=== PATIENT | male | born 1995 | race Caucasian/White ===

== ENCOUNTER 2016-08-11 20:51 | Emergency (ER) | payer BC ==
[2016-08-11] MEDS ORDERED: guaiFENesin/CODIEN 100MG-10MG* 5 ML UDC PO ONE (21:35)
--- NOTE | 2016-08-11 21:41 | UC ---
UC General HPI - HPI Summary HPI Summary: fever cough ricci tested positive for flu today - History of Current Complaint Chief Complaint: UCGeneralIllness Stated Complaint: FLU SYMPTOMS Time Seen by Provider: 08/11/16 21:30 Hx Obtained From: Patient Onset/Duration: Sudden Onset, Lasting Days Timing: Constant Onset Severity: Moderate Current Severity: Moderate Associated Signs & Symptoms: Positive: Cough, Fever, Headache - Allergy/Home Medications Allergies/Adverse Reactions: Allergies Allergy/AdvReac Type Severity Reaction Status Date / Time No Known Allergies Allergy Verified 08/11/16 21:05 Home Medications: Home Medications Ibuprofen TAB* [Advil TAB*] 600 mg PO Q6H PRN 08/11/16 [History Confirmed ] Minocycline HCl [Minocin] 100 mg PO DAILY 08/11/16 [History Confirmed 08/11/16] PMH/Surg Hx/FS Hx/Imm Hx Previously Healthy: Yes - Surgical History Surgical History: Yes Surgery Procedure, Year, and Place: hand surgery - Family History Known Family History: Positive: Hypertension - Social History Alcohol Use: None Substance Use Type: None Smoking Status (MU): Never Smoked Tobacco Review of Systems Constitutional: Fever, Chills, Fatigue Skin: Negative Eyes: Negative ENT: Sore Throat Respiratory: Shortness Of Breath, Cough Cardiovascular: Negative Gastrointestinal: Negative Genitourinary: Negative Motor: Negative Neurovascular: Negative Musculoskeletal: Myalgia Neurological: Headache Psychological: Negative All Other Systems Reviewed And Are Negative: Yes Physical Exam Triage Information Reviewed: Yes Appearance: Well-Nourished, Ill-Appearing, Pain Distress Vital Signs: Initial Vital Signs Temp 100.4 F 08/11/16 20:59 Pulse 86 08/11/16 20:59 Resp 24 08/11/16 20:59 BP 115/68 08/11/16 20:59 Pulse Ox 100 08/11/16 20:59 Vital Signs Reviewed: Yes Eye Exam: Normal Eyes: Positive: Conjunctiva Clear ENT: Positive: Pharyngeal erythema, Nasal congestion, TM red Dental Exam: Normal Neck exam: Normal Neck: Positive: Supple, Nontender, No Lymphadenopathy Respiratory Exam: Normal Respiratory: Positive: Chest non-tender, Lungs clear, Normal breath sounds, Other: - coughing Cardiovascular Exam: Normal Cardiovascular: Positive: RRR, No Murmur, Pulses Normal Abdominal Exam: Normal Abdomen Description: Positive: Nontender, No Organomegaly, Soft Bowel Sounds: Positive: Present Musculoskeletal Exam: Normal Musculoskeletal: Positive: Strength Intact, ROM Intact, No Edema Neurological Exam: Normal Neurological: Positive: Alert, Muscle Tone Normal Psychological Exam: Normal Skin Exam: Normal Course/Dx - Course Course Of Treatment: history obtained, exam performed flu swab positive for flu A. meds dispensed and prescribed. - Differential Dx - Multi-Symptom Provider Diagnoses: influenza A. cough Discharge - Discharge Plan Condition: Stable Disposition: HOME Prescriptions: guaiFENesin/CODIEN 100MG-10MG* [Robitussin AC 100Mg-10Mg*] 5 ml PO BEDTIME PRN # 100 ml MDD 5 ml PRN Reason: Cough Patient Education Materials: Influenza (ED) Additional Instructions: Take the medication as prescribed. Increase your fluid intake and get plenty of rest.
[2016-08-11 21:56] VITALS: BP 112/66
== END 2016-08-11 21:56 | disposition home or self-care (01) ==
LOC: UCCORT 20:51
DX: J10.1 Influenza due to other identified influenza virus with other respiratory manifestations (principal); R05 Cough
CPT/HCPCS: 87502; 99212; A9270-GY; G0463

== ENCOUNTER 2018-12-18 15:00 | Emergency (ER) | payer BC ==
[2018-12-18 15:26] VITALS: BP 123/50
--- NOTE | 2018-12-18 15:53 | UC ---
Ear Complaint HPI - HPI Summary HPI Summary: 4 day history of congestion and fever, with increasing ear pain, decreased hearing. Several days ago had an exposure to a smoky environment which triggered symptoms. Has been using zyrtec an otc meds without relief. Mild cough , no shortness of breath. - History of Current Complaint Chief Complaint: UCGeneralIllness Stated Complaint: BILATERAL EARS,SORE THROAT,SINUSES Time Seen by Provider: 12/18/18 15:44 Hx Obtained From: Patient Onset/Duration: Gradual Onset, Lasting Days - 4 Severity Initially: Moderate Severity Currently: Moderate Pain Intensity: 6 Aggravating Factors: Nothing Alleviating Factors: OTC Meds Associated Signs/Symptoms: Positive: URI Symptoms. Negative: Trauma to Ear Related History: Seasonal Allergies - Allergies/Home Medications Allergies/Adverse Reactions: Allergies Allergy/AdvReac Type Severity Reaction Status Date / Time No Known Allergies Allergy Verified 12/18/18 15:20 PMH/Surg Hx/FS Hx/Imm Hx Previously Healthy: Yes - Surgical History Surgical History: Yes Surgery Procedure, Year, and Place: R hand surgery - Family History Known Family History: Positive: Hypertension, Other - GM of CA colon - Social History Occupation: Employed Full-time - beginning work at [employer] Lives: With Family Alcohol Use: Occasionally Substance Use Type: None Smoking Status (MU): Never Smoked Tobacco Review of Systems All Other Systems Reviewed And Are Negative: Yes Constitutional: Positive: Fever, Fatigue Skin: Positive: Other - has a nodular area in the left upper medial thigh. Has seen derm in the past due to multiple nevi, no hx of melanoma ENT: Positive: Sore Throat, Ear Ache, Nasal Discharge, Sinus Congestion Respiratory: Positive: Negative Cardiovascular: Positive: Negative Gastrointestinal: Positive: Negative Genitourinary: Positive: Negative Musculoskeletal: Positive: Negative Physical Exam Triage Information Reviewed: Yes Appearance: Well-Appearing, Pain Distress - mild Vital Signs: Initial Vital Signs Temp 99.2 F 12/18/18 15:21 Pulse 82 12/18/18 15:21 Resp 14 12/18/18 15:21 BP 123/50 12/18/18 15:21 Pulse Ox 99 12/18/18 15:21 Eyes: Positive: Conjunctiva Clear ENT: Positive: Pharyngeal erythema, Nasal congestion, TM bulging, TM dull - right, TM red - right Dental Exam: Normal Neck: Positive: Supple, Nontender, No Lymphadenopathy Respiratory: Positive: Chest non-tender, Lungs clear Cardiovascular: Positive: RRR Musculoskeletal Exam: Normal Neurological Exam: Normal Neurological: Positive: Alert Skin Exam: Other - left inner medial thigh with 1 cm x 6 mm nodule with light brown color. No inguinal adenopathy. Numerous nevi trunk and face. Ear Complaint Course/Dx - Course Course Of Treatment: amoxicillin for otitis media. Continue zyrtec and add flonase. He declined a derm referral at this time (has had check within the year, not certain if groin nodule was assessed. - Differential Dx/Diagnosis Differential Diagnosis/HQI/PQRI: Otitis Media Provider Diagnosis: Right otitis media Discharge - Sign-Out/Discharge Documenting (check all that apply): Patient Departure All imaging exams completed and their final reports reviewed: No Studies - Discharge Plan Condition: Stable Disposition: HOME Prescriptions: Amoxicillin PO (*) [Amoxicillin 875 MG (*)] 875 mg PO BID #14 tab Patient Education Materials: Ear Infection (ED) Referrals: Dixie Ham MD [Primary Care Provider] - Additional Instructions: Use amoxicillin for otitis media, and use ibuprofen as needed for pain. You might add flonase spray (over the counter) for relief of nasal congestion. Continue zyrtec for suspected allergies. 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 As discussed , you will follow up with one of the dermatologists you have seen in the past for evaluation. - Billing Disposition and Condition Condition: STABLE Disposition: Home
== END 2018-12-18 16:14 | disposition home or self-care (01) ==
LOC: UCCORT 15:00
DX: H66.91 Otitis media, unspecified, right ear (principal)
CPT/HCPCS: 99212; G0463

== ENCOUNTER 2019-03-03 08:21 | Emergency (ER) | payer BC ==
[2019-03-03 08:42] VITALS: BP 115/62
--- NOTE | 2019-03-03 09:05 | UC ---
Epistaxis Nasal HPI - HPI Summary HPI Summary: pain bilateral nostril x 1 week + fullness, crusty scab, pain is 5 out of 10 , worse with touch , better with antibiotic oint no fever, no nasal discharge, no bleeding, no cold symptoms - History of Current Complaint Chief Complaint: UCGeneralIllness Stated Complaint: SINUS CONCERN Time Seen by Provider: 03/03/19 08:55 Hx Obtained From: Patient Onset/Duration: Gradual Onset, Lasting Days - 7, Still Present Timing: Constant Severity Initially: Moderate Severity Currently: Moderate Pain Intensity: 4 Aggravating Factor(s): Other - touch Associated Signs And Symptoms: Positive: Negative - Allergies/Home Medications Allergies/Adverse Reactions: Allergies Allergy/AdvReac Type Severity Reaction Status Date / Time No Known Allergies Allergy Verified 03/03/19 08:35 PMH/Surg Hx/FS Hx/Imm Hx Previously Healthy: Yes - Surgical History Surgical History: Yes Surgery Procedure, Year, and Place: R hand surgery - Family History Known Family History: Positive: Hypertension, Other - GM of CA colon - Social History Alcohol Use: Rare Substance Use Type: None Smoking Status (MU): Never Smoked Tobacco Review of Systems All Other Systems Reviewed And Are Negative: Yes Constitutional: Positive: Negative Is Patient Immunocompromised?: No Physical Exam Triage Information Reviewed: Yes Appearance: Well-Appearing, No Pain Distress, Well-Nourished Vital Signs: Initial Vital Signs Temp 98.5 F 03/03/19 08:36 Pulse 62 03/03/19 08:36 Resp 14 03/03/19 08:36 BP 115/62 03/03/19 08:36 Pulse Ox 100 03/03/19 08:36 Vital Signs Reviewed: Yes Eye Exam: Normal Eyes: Positive: Conjunctiva Clear ENT: Positive: Normal ENT inspection, Hearing grossly normal, Pharynx normal, Nasal congestion, TMs normal, Other - bilateral nostril erythema, tender, swelling, no dicharge Epistaxis Nasal Course/Dx - Differential Dx/Diagnosis Provider Diagnosis: Infection of nose Discharge ED - Sign-Out/Discharge Documenting (check all that apply): Patient Departure All imaging exams completed and their final reports reviewed: No Studies - Discharge Plan Condition: Stable Disposition: HOME Prescriptions: Amoxicillin PO (*) [Amoxicillin 875 MG (*)] 875 mg PO BID #20 tab Mupirocin 2% OINT* [Bactroban 2 % Oint*] 1 applic TOPICAL BID #1 tube Referrals: Dixie Ham MD [Primary Care Provider] - Additional Instructions: infection of nasal canal cont. with Amoxicillin / antibiotic oint x 7 days follow up with your pcp in one week if not better - Billing Disposition and Condition Condition: STABLE Disposition: Home
== END 2019-03-03 09:06 | disposition home or self-care (01) ==
LOC: UCCORT 08:21
DX: J34.89 Other specified disorders of nose and nasal sinuses (principal)
CPT/HCPCS: 99212; G0463

== ENCOUNTER 2019-08-18 15:55 | Emergency (ER) | payer BC | END 2019-08-18 16:35 | disposition left against medical advice (07) | LOC: UCCORT 15:55 | DX: Z53.21 Procedure and treatment not carried out due to patient leaving prior to being seen by health care provider (principal) ==